=== PATIENT | male | born 1955 | race Caucasian/White ===

== ENCOUNTER → 2017-01-15 | Outpatient (CLI) | payer OTHER ==
[2017-01-15 16:22] LABS: ALBUMIN 3.6 GM/DL (3.2-5.2); ALBUMIN/GLOBULIN RATIO 1.03 (1.00-1.93); ALKALINE PHOSPHATASE 56 U/L (45-117); ALT/SGPT 23 U/L (12-78); ANION GAP 6 MEQ/L (8-16); AST/SGOT 22 U/L (15-37); BILIRUBIN,TOTAL 0.4 MG/DL (0.2-1.0); BLOOD UREA NITROGEN 15 MG/DL (7-18); CALCIUM LEVEL 8.7 MG/DL (8.8-10.2); CARBON DIOXIDE LEVEL 32 MEQ/L (21-32); CHLORIDE LEVEL 102 MEQ/L (98-107); CREATININE FOR GFR 1.04 MG/DL (0.70-1.30); GLOMERULAR FILTRATION RATE > 60.0 (>49); GLUCOSE, FASTING 107 MG/DL (80-110); POTASSIUM SERUM 4.5 MEQ/L (3.5-5.1); SODIUM LEVEL 140 MEQ/L (136-145); TOTAL PROTEIN 7.1 GM/DL (6.4-8.2)
== END ==
LOC: M LAB 15:02
PROVIDERS: ATTEND Family Medicine
DX: R63.4 Abnormal weight loss (principal)

== ENCOUNTER → 2017-02-01 | Outpatient (CLI) | payer OTHER ==
[~2017-02-01] MED LIST: E-Z-GAS II EFFERVESCENT PACKET (SODIUM BICARB./CITRIC ACID/SIMETHICONE) As Ordered ONE; E-Z-HD 98% w/w 340GM SUSP BTL As Ordered ONE; E-Z-PAQUE 96% w/w SUSP 176GM BTL As Ordered ONE
--- NOTE | 2017-02-01 19:27 | REP ---
Esophagram The procedure was performed under the direct supervision of Dr. Garces. The images were reviewed with Dr. Garces. 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 There is no change compared to a previous chest x-ray performed on 06/2002 the 1016. Liquid barium was administered in the erect position and prone oblique positions in order to perform a single contrast esophagram examination. The exam is compared to the previous study performed on 06/12/2012. The oral and pharyngeal stages of deglutition are unremarkable. 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 There is narrowing at the GE junction which is unchanged from the previous examination. This again measures approximately 3 mm in maximal diameter. In the mid and distal esophagus there is mucosal irregularity which may represent esophagitis. I would recommend endoscopy to rule out superficial carcinoma. Impression: 1. 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 2. There is narrowing at the GE junction which is unchanged from the previous examination. This again measures approximately 3 mm in maximal diameter. 3. In the mid and distal esophagus there is mucosal irregularity which may represent esophagitis. However, recommend endoscopy to rule out superficial carcinoma. 2 minutes of fluoro time was utilized for this procedure. Reviewed by YNES Hernandez 02/01/2017 02:46 PSigned by Jeff Garces MD 02/01/2017 07:18 P
== END ==
LOC: M RAD 08:36
PROVIDERS: ATTEND Physician Assistant
DX: K22.0 Achalasia of cardia (principal)

== ENCOUNTER → 2018-06-26 | Outpatient (CLI) | payer OTHER ==
--- NOTE | 2018-06-26 14:01 | PFTRPT ---
Height: 71.00 Inches Weight: 146.00 Lbs BSA: 1.84 Diagnosis: J44.9 DATE OF PROCEDURE: 06/26/2018 ORDERING PROVIDER: Mickey Hester DO Spirometry: Pre and post bronchodilator study of excellent technical quality. Forced vital capacity normal. FEV1 out of proportion. Obstructive index is, therefore, reduced. Flow Volume Loop: Expiratory limb of the flow volume loop consistent with flow rate limitation. No significant bronchodilator response is identified. Lung Volumes: Total lung capacity normal. Residual volume is in proportion. Diffusing Capacity: Diffusing capacity is normal. Hemoglobin: No hemoglobin available for correction. Airway Mechanics: Airway resistance and conductance are normal. IMPRESSION: Moderate obstructive ventilatory impairment without bronchodilator response. Please correlate clinically. MTDD
== END ==
LOC: M CARPUL 11:19
PROVIDERS: ATTEND Family Medicine
DX: J44.9 Chronic obstructive pulmonary disease, unspecified (principal)

== ENCOUNTER → 2020-08-02 | Outpatient (REF) | payer OTHER | LOC: M SFHCPLAZ 14:53 | PROVIDERS: ATTEND Family Medicine | DX: Z13.1 Encounter for screening for diabetes mellitus (principal); Z13.220 Encounter for screening for lipoid disorders ==

== ENCOUNTER → 2020-09-20 | Outpatient (CLI) | payer MEDICARE, MEDICAID ==
--- NOTE | 2020-09-20 13:34 | REP ---
INDICATION: RIGHT SHOULDER PAIN. COMPARISON: None. TECHNIQUE: Three views of the right shoulder were performed. FINDINGS: The acromioclavicular and glenohumeral relationships are within normal limits. There is no acute fracture or destructive osseous lesion. IMPRESSION: Within normal limits <Electronically signed by Robert Delvalle > 09/20/20 [id number]
== END ==
LOC: M RAD 13:12
PROVIDERS: ATTEND Physician Assistant Medical
DX: M25.511 Pain in right shoulder (principal)

== ENCOUNTER 2021-05-08 08:39 | Inpatient (IN) | payer MEDICAID, MEDICARE ==
[~2021-05-08] VITALS: Ht 180.3 cm; Wt 67.9 kg
[2021-05-08] MEDS ORDERED: ACETAMINOPHEN TAB 650MG DOSE (2X325MG) PO ONE (09:10)
[2021-05-08] MEDS ORDERED: NS 2,110 ML in IV 1 EA IV ONE (09:15)
[2021-05-08] MEDS ORDERED: cefTRIAXone SOD 2 GM in D5W MINI-BAG PLUS 50 ML IV ONE (09:15)
[2021-05-08 09:44] LABS: BASO % 0.1 % (0.0-1.0); HEMATOCRIT 40.9 % (42.0-52.0); HEMOGLOBIN 13.4 g/dl (13.5-17.5); LYMPH # 0.4 10^3/uL (1.5-5.0); LYMPH % 1.9 % (24.0-44.0); MEAN CORPUSCULAR HEMOGLOBIN 29.2 pg (27.0-33.0); MEAN CORPUSCULAR HGB CONC 32.8 g/dl (32.0-36.5); MEAN CORPUSCULAR VOLUME 89.1 fl (80.0-96.0); MONO # 1.1 10^3/uL (0.0-0.8); MONO % 5.4 % (2.0-8.0); NEUTROPHILS # 18.3 10^3/uL (1.5-8.5); NEUTROPHILS % 91.7 % (36.0-66.0); PLATELET COUNT, AUTOMATED 198 10^3/uL (150-450); RED BLOOD COUNT 4.59 10^6/uL (4.30-6.10)
--- NOTE | 2021-05-08 09:44 | REP ---
INDICATION: DYSPNEA/COUGH COMPARISON: 04/14/2016 TECHNIQUE: Portable AP view of the chest FINDINGS: Mediastinum and cardiac silhouette are normal. Lung hardy demonstrate emphysematous disease without focal consolidation or effusion. No pneumothorax. Skeletal structures intact. IMPRESSION: Chronic emphysematous changes. No acute process. <Electronically signed by Luther Gross > 05/08/21 [id number]
[2021-05-08 09:54] LABS: ALBUMIN 2.9 GM/DL (3.2-5.2); ALT/SGPT 83 U/L (12-78); BILIRUBIN,DIRECT 0.5 MG/DL (0.0-0.2); BLOOD UREA NITROGEN 23 MG/DL (7-18); CALCIUM LEVEL 8.6 MG/DL (8.8-10.2); CARBON DIOXIDE LEVEL 22 MEQ/L (21-32); CHLORIDE LEVEL 107 MEQ/L (98-107); GLUCOSE, FASTING 156 MG/DL (70-100); POTASSIUM SERUM 3.6 MEQ/L (3.5-5.1); SODIUM LEVEL 138 MEQ/L (136-145); TOTAL PROTEIN 6.4 GM/DL (6.4-8.2)
[2021-05-08] MEDS ORDERED: NS 1,000 ML IV ONE (11:50)
--- NOTE | 2021-05-08 12:17 | REP ---
INDICATION: SEPSIS COMPARISON: None TECHNIQUE: Axial noncontrast images from the thoracic inlet to the upper abdomen with coronal and sagittal reformations. This CT examination was performed using the following dose reduction techniques: Automated exposure control, adjustment of mA and/or kv according to the patient's size, and use of iterative reconstruction technique. FINDINGS: The lung hardy demonstrate advanced emphysematous changes with bronchiectasis and scattered scarring. There is an acute appearing "tree in bud" area of opacity in the right lower lobe suspicious for an acute infiltrate/early pneumonia. No effusion. No pneumothorax. Tracheobronchial tree is patent. The mediastinum demonstrates marked circumferential esophageal mural thickening with a significant amount of intraluminal debris/fluid to a distended distal esophagus followed by presumed stenosis at the gastroesophageal junction. Remainder of the mediastinum demonstrates atherosclerotic changes to the thoracic aorta and coronary arteries without aortic aneurysm or cardiomegaly. No pericardial effusion. Nonspecific mediastinal lymph nodes are identified and possibly reactive. Surrounding musculoskeletal structures demonstrate age-related degenerative changes without acute osseous abnormality. IMPRESSION: 1. Small to moderate area of "tree in bud" infiltrate to the right lower lobe suggesting early acute pneumonia. Follow-up to resolution is recommended. Small scattered nodules cannot be excluded as well. No effusion. 2. Circumferential esophageal wall thickening and distension with intraluminal debris and fluid extending to what appears to be an area of stenosis at the gastroesophageal junction. Correlation is required. <Electronically signed by Luther Gross > 05/08/21 [id number]
--- NOTE | 2021-05-08 12:21 | REP ---
INDICATION: SEPSIS R/O PYELONEPHRITIS COMPARISON: None TECHNIQUE: Axial noncontrast images from the lung bases to the pubic symphysis with coronal and sagittal reformations. This CT examination was performed using the following dose reduction techniques: Automated exposure control, adjustment of mA and/or kv according to the patient's size, and use of iterative reconstruction technique. FINDINGS: Liver, spleen, pancreas, gallbladder, bilateral adrenal glands and kidneys are essentially normal. The enteric system demonstrates luminal distension and mucosal thickening involving the visualized distal esophagus with intraluminal debris/fluid followed by suspected stenosis at the gastroesophageal junction and mucosal thickening to the proximal/mid stomach. Small and large bowel is grossly unremarkable although moderate fecal stasis and constipation requires correlation. Normal terminal ileum and appendix are identified in the right lower quadrant. Pelvis demonstrates normal bladder and enlarged prostate gland. No ascites. No free air. No obvious adenopathy although evaluation is limited by paucity of intraperitoneal fat and lack of intravenous contrast enhancement. No focal inflammatory stranding. Abdominal aorta without aneurysm. Musculoskeletal structures are intact and without acute osseous abnormality. IMPRESSION: 1. Changes involving the esophagus and stomach as described above warrant further investigation including GI consultation and possible endoscopy. 2. No definite acute abdominopelvic pathology otherwise appreciated. 3. Prostatomegaly. <Electronically signed by Luther Gross > 05/08/21 [id number]
[2021-05-08] MEDS ORDERED: HOME MED LIST COMPLETE! XX SCH (12:30)
[2021-05-08] MEDS: MIDODRINE 5 MG TAB PO SCH ×2 (13:00→15:48)
[2021-05-08] MEDS ORDERED: ENOXAPARIN 40MG/0.4ML SYRINGE (J1650 PER 10MG) SC ONE (13:00)
[2021-05-08] MEDS ORDERED: VANCOMYCIN HCL 1,000 MG, VIAL MATE ADAPTER 1 EACH in NS 250 ML IV ONE (13:00)
[2021-05-08 14:10] LABS: ACETAMINOPHEN LEVEL < 2.0 UG/ML (10.0-30.0)
[2021-05-08 14:32] LABS: HEPATITIS B SURFACE ANTIGEN NEGATIVE (NEGATIVE)
[2021-05-08 15:00] LABS: HEPATITIS B CORE ANTIBODY IGM NEGATIVE (NEGATIVE); HEPATITIS C VIRUS ABY INDEX 0.2 INDEX (<0.8)
[2021-05-08 17:23] VITALS: BP 104/64
--- NOTE | 2021-05-08 18:11 | HPEPDOC ---
[facility] Medical History & Physical Date of Admission May 08, 2021 Date of Service: May 08, 2021 History and Physical Chief complaint : Fever for 3 days 101-102 at home History of present illness: 65-year-old male with history of achalasia, depression, hypercholesterolemia, COPD, not oxygen or steroid-dependent, presents emergency room with 3-day history of fever of 101-102 at home. Patient felt well on , and was working tearing down plaster. The next day he had flulike symptoms, but no shortness of breath, loss of taste, loss of smell, chest pain, pressure, tightness, or chills. The flulike symptoms went away. Then, last night around 2:58 AM he noticed blood in his urine which cleared on its own. He took ibuprofen 2 to 3 tablets for his fevers. He admits to loss of appetite , without nausea , vomiting, abdominal pain, diarrhea, flank pain, headaches, shortness of breath, or cough. In the emergency room, patient was febrile 102.7, respiratory panel positive for rhinovirus and enterovirus, negative for coronavirus, hypotensive systolic pressure of 70/41, CT chest shows early right lower lobe pneumonia with tree-in-bud appearance, abnormal urinalysis, gross hematuria with hemoglobin of 13, CT abdomen showing normal bladder but enlarged prostate, and mucosal thickening and suspected stenosis at the gastroesophageal junction which he ascribes to his chronic history of achalasia. Patient was given 2 g of IV ceftriaxone for UTI. Due to concerns for possible aspiration patient was given IV Zosyn and to also cover for UTI, and doxycycline to cover for atypical pneumonia. Hospitalist was asked to admit the patient for sepsis secondary to urinary tract infection and early right upper lobe pneumonia with chronic history of achalasia. Past medical history: Achalasia depression hypercholesterolemia COPD Past surgical history: None Allergies: See chart Home medications: See chart Social history: Prior smoker quit 10 years ago previous Heath smoke a pack a day from the age of 30 to the age of 55, denies recreational drug use and alcohol abuse, works in construction, full code Family history: Patient does not know his father. Mother with Parkinson's hypertension and diabetes Review of system: See HPI for positive findings otherwise -10 point review of system Physical examination: Vital signs: See chart Generally: Disheveled thin frail appears older than his stated age no distress No pallor icterus jaundice or cyanosis HEENT: Face is symmetric tongue is midline dry mucous membranes no JVD thyromegaly cervical lymph adenopathy No carotid bruit, stridor Lungs: Clear to auscultation air entry is equal inspiratory expiratory ratio 1:2 no adventitious breath sounds Heart S1-S2 no S3 regular rate rhythm no murmurs gallops nondisplaced point of maximal impulse Abdomen: Soft nontender nondistended positive bowel sounds no CVA tenderness no hepatosplenomegaly refused Hamilton catheter Extremities: No cyanosis clubbing or pitting edema Skin: Warm dry well perfused pink in color Laboratory data, imaging study, microbiology: See chart Assessment and plan: 65-year-old male with history of achalasia, depression, hypercholesterolemia, COPD, not oxygen or steroid-dependent, presents emergency room with 3-day history of fever of 101-102 at home. Patient felt well on , and was working tearing down plaster. The next day he had flulike symptoms, but no shortness of breath, loss of taste, loss of smell, chest pain, pressure, tightness, or chills. The flulike symptoms went away. Then, last night around 2:58 AM he noticed blood in his urine which cleared on its own. He took ibuprofen 2 to 3 tablets for his fevers. He admits to loss of appetite , without nausea , vomiting, abdominal pain, diarrhea, flank pain, headaches, shortness of breath, or cough. In the emergency room, patient was febrile 102.7, respiratory panel positive for rhinovirus and enterovirus, negative for coronavirus, hypotensive systolic pressure of 70/41, CT chest shows early right lower lobe pneumonia with tree-in-bud appearance, abnormal urinalysis, gross hematuria with hemoglobin of 13, CT abdomen showing normal bladder but enlarged prostate, and mucosal thickening and suspected stenosis at the gastroesophageal junction which he ascribes to his chronic history of achalasia. Patient was given 2 g of IV ceftriaxone for UTI. Due to concerns for possible aspiration patient was given IV Zosyn and to also cover for UTI, and doxycycline to cover for atypical pneumonia. Sepsis Secondary to urinary tract infection early right upper lobe pneumonia and enterovirus and rhinoviral infection Patient was given intravenous fluids due to hypotension started on ceftriaxone in the ER but continued on Zosyn and doxycycline Urinary tract infection with gross hematuria No pyelonephritis noted on CT abdomen and pelvis and without thickening of the bladder wall Patient refused Hamilton catheter and continuous bladder irrigation He was given IV ceftriaxone in the ER, continued on Zosyn in order to cover pneumonia from possible aspiration as well Await urine culture and de-escalate antibiotics Recheck hemoglobin hematocrit to assess for worsening blood loss Gross hematuria/acute blood loss Patient is refusing Hamilton catheter with continuous bladder irrigation to see if the hematuria resolves Avoid anticoagulants. Hemoglobin stable patient is currently improved with IV fluid hydration is not hypotensive anymore. Monitor I's and O's. If patient has less than 30 mils of urine per hour, check a bladder scan to make sure the blood clots are not preventing urine from coming out. Transfuse his hemoglobin is less than 7 with ongoing blood loss or if sym ptomatic Enteroviral human rhino viral infection Contact precautions. Supportive care Early right lower lobe community-acquired pneumonia Due to risk of aspiration with history of achalasia and dysphagia in the past patient has been covered for anaerobics bacteria with Zosyn as well as doxycycl ine for atypical infection He refuses further work-up for his achalasia therefore upper GI series and GI consultation was not done Covid negative. Dry cough unable to obtain sputum culture. Check urine strep to coccal antigen and urine Legionella. Chronic history of achalasia Refused surgery in [place] 5 years ago Patient had seen Dr. Osuna who recommended surgery but patient refused He is at risk for dysphagia causing aspiration now with a right lower lobe pneumonia but refusing upper GI series GI consult and surgery which was recommended by GI from his previous office visit. Prior history of smoking, with [id number] history of smoking, COPD, compensated Patient quit smoking 10 years ago He has no wheezing on exam As needed bronchodilators Hypercholesterolemia Check lipid profile in the morning Depression No acute suicidal or homicidal ideation or plan. Disposition: Patient wants to leave the hospital tomorrow. Defer to morning physician to see if patient can be discharged home if clinically stable. Patient has mental capacity to sign out AGAINST MEDICAL ADVICE. Vital Signs Vital Signs Date Time Temp Pulse Resp B/P (MAP) Pulse Ox O2 Delivery O2 Flow Rate FiO2 05/08/21 17:23 99.5 91 18 104/64 (77) 05/08/21 17:00 97 Room Air Laboratory Data Labs 24H Laboratory Tests 2 05/08/21 09:12: Immature Granulocyte % (Auto) 0.9, Neutrophils (%) (Auto) 91.7H, Lymphocytes (%) (Auto) 1.9L, Monocytes (%) (Auto) 5.4, Eosinophils (%) (Auto) 0.0, Basophils (%) (Auto) 0.1, Neutrophils # (Auto) 18.3H, Lymphocytes # (Auto) 0.4L, Monocytes # (Auto) 1.1H, Eosinophils # (Auto) 0.0, Basophils # (Auto) 0.0, Nucleated Red Blood Cells % (auto) 0.0, Anion Gap 9, Glomerular Filtration Rate 59.0, Lactic Acid Level 1.4, Calcium Level 8.6L, Total Bilirubin 1.0, Direct Bilirubin 0.5H, Aspartate Amino Transf (AST/SGOT) 79H, Alanine Aminotransferase (ALT/SGPT) 83H, Alkaline Phosphatase 95, Total Protein 6.4, Albumin 2.9L, Albumin/Globulin Ratio 0.8, Thyroid Stimulating Hormone (TSH) 1.420, Acetaminophen Level < 2.0L, Hepatitis A IgM Antibody NEGATIVE, Hepatitis B Surface Antigen NEGATIVE, Hepatitis B Core IgM Antibody NEGATIVE, Hepatitis C Antibody Index 0.2 05/08/21 09:20: Urine Color YELLOW, Urine Appearance CLOUDYH, Urine pH 5.0, Urine Specific [place] 1.014, Urine Protein 2+H, Urine Glucose (UA) NEGATIVE, Urine Ketones NEGATIVE, Urine Blood 3+H, Urine Nitrite POSITIVEH, Urine Bilirubin NEGATIVE, Urine Urobilinogen 0.2, Urine Leukocyte Esterase 3+H, Urine WBC (Auto) TNTCH, Urine RBC (Auto) 56H, Urine Hyaline Casts (Auto) 0, Urine Bacteria (Auto) 2+H, Urine Squamous Epithelial Cells 1, Urine Transitional Epithelial Cells 1, Urine Amorphous Sediment SMALLH, Urine Mucus (Auto) SMALL, Urine Sperm (Auto) CBC/BMP Laboratory Tests 05/08/21 09:12 Microbiology Microbiology 05/08/21 Urine Culture, Received Pending 05/08/21 Respiratory Virus Panel (PCR) ([facility]IRAN) - Final, Complete Human Rhinovirus/Enterovirus 05/08/21 Blood Culture, Received Pending 05/08/21 Blood Culture, Received Pending Home Medications No Active Prescriptions or Reported Meds Allergies Coded Allergies: No Known Allergies (Unverified , 05/08/21) A-FIB/CHADSVASC A-FIB History Current/History of A-Fib/PAF?: No Current PO Anticoag Therapy: No Age/Risk Factor Scoring CHADSVASC: CHADSVASC Response (Comments) Value Age Risk Factor Age 65-74 years old 1 Gender Risk Factor Male 0 Hx of CHF No 0 Hx of HTN Yes 1 Hx of Stroke/TIA/or VTE No 0 Hx of Vascular Disease No 0 Total 2 Treatment Treatment ordered: NONE NAT SEVERINO MD May 08, 2021 18:11
[2021-05-08] MEDS: PIPERACILLIN/TAZOBACTAM SOD 3.375 GM in D5W MINI-BAG PLUS 50 ML IV SCH (18:33)
[2021-05-08 20:00] VITALS: BP 91/49
[2021-05-08] MEDS: DOXYCYCLINE HYCLATE 100 MG in D5W MINI-BAG PLUS 100 ML IV SCH (20:50)
[2021-05-09] MEDS: PIPERACILLIN/TAZOBACTAM SOD 3.375 GM in D5W MINI-BAG PLUS 50 ML IV SCH ×5 (00:02→23:13)
--- NOTE | 2021-05-09 00:45 | ECGEPIP ---
[facility] - ED Test Date: 2021-05-08 Pat Name: BELTRAN GUSTAFSON Department: Room: - Gender: Male Refrigeration Installer: steven : 1955 Requested By: YANIRA Wilson Order Number: [id number] Reading MD: Mike Strickland Measurements Intervals [place] Rate: 90 P: 83 DC: 122 QRS: 54 QRSD: 80 T: 71 QT: 324 QTc: 396 Interpretive Statements Normal sinus rhythm Possible right atrial enlargement INCOMPLETE RIGHT BUNDLE BRANCH BLOCK NO PRIORS FOR COMPARISON Electronically Signed on 05-09-2021 0:45:13 EST by Mike Strickland
[2021-05-09 06:00] VITALS: BP 94/49
[2021-05-09 06:24] LABS: BASO % 0.2 % (0.0-1.0); EOS # 0.2 10^3/uL (0.0-0.5); HEMATOCRIT 36.5 % (42.0-52.0); HEMOGLOBIN 11.9 g/dl (13.5-17.5); LYMPH # 1.3 10^3/uL (1.5-5.0); LYMPH % 7.9 % (24.0-44.0); MEAN CORPUSCULAR HEMOGLOBIN 29.6 pg (27.0-33.0); MEAN CORPUSCULAR HGB CONC 32.6 g/dl (32.0-36.5); MEAN CORPUSCULAR VOLUME 90.8 fl (80.0-96.0); MONO # 1.8 10^3/uL (0.0-0.8); MONO % 10.7 % (2.0-8.0); NEUTROPHILS # 13.4 10^3/uL (1.5-8.5); NEUTROPHILS % 79.5 % (36.0-66.0); PLATELET COUNT, AUTOMATED 181 10^3/uL (150-450); RED BLOOD COUNT 4.02 10^6/uL (4.30-6.10); WHITE BLOOD COUNT 16.8 10^3/uL (4.0-10.0)
[2021-05-09 06:47] LABS: ALBUMIN 2.4 GM/DL (3.2-5.2); ALT/SGPT 73 U/L (12-78); BILIRUBIN,TOTAL 0.4 MG/DL (0.2-1.0); BLOOD UREA NITROGEN 24 MG/DL (7-18); CALCIUM LEVEL 7.7 MG/DL (8.8-10.2); CARBON DIOXIDE LEVEL 24 MEQ/L (21-32); CHLORIDE LEVEL 113 MEQ/L (98-107); CREATININE FOR GFR 1.06 MG/DL (0.70-1.30); GLOMERULAR FILTRATION RATE > 60.0 (>49); GLUCOSE, FASTING 90 MG/DL (70-100); LIPASE 317 U/L (73-393); MAGNESIUM LEVEL 1.9 MG/DL (1.8-2.4); POTASSIUM SERUM 3.7 MEQ/L (3.5-5.1); SODIUM LEVEL 143 MEQ/L (136-145); TOTAL PROTEIN 5.6 GM/DL (6.4-8.2)
[2021-05-09] MEDS ORDERED: E-Z-PAQUE 96% w/w SUSP 176GM BTL As Ordered ONE (08:45)
[2021-05-09] MEDS ORDERED: E-Z-GAS II EFFERVESCENT PACKET (SODIUM BICARB./CITRIC ACID/SIMETHICONE) As Ordered ONE (08:45)
[2021-05-09] MEDS ORDERED: E-Z-HD 98% w/w 340GM SUSP BTL As Ordered ONE (08:46)
[2021-05-09] MEDS ORDERED: ENOXAPARIN 40MG/0.4ML SYRINGE (J1650 PER 10MG) SC SCH (09:00)
[2021-05-09 09:06] VITALS: BP 99/60
[2021-05-09] MEDS: DOXYCYCLINE HYCLATE 100 MG in D5W MINI-BAG PLUS 100 ML IV SCH ×2 (09:09→21:41)
[2021-05-09] MEDS: MIDODRINE 5 MG TAB PO SCH ×3 (09:09→17:22)
[2021-05-09] MEDS: LACTOBACILLUS ACIDOPHILUS CAP (BACID) PO SCH ×2 (09:09→21:42)
[2021-05-09] MEDS ORDERED: cefTRIAXone SOD 1 GM in D5W MINI-BAG PLUS 50 ML IV SCH (10:00)
[2021-05-09] MEDS ORDERED: IPRATROPIUM 0.5MG/ALBUTEROL 2.5MG INH SOL UD 3ML (DUONEB) NEB PRN (10:10)
--- NOTE | 2021-05-09 10:17 | IPNPDOC ---
Text Note Date of Service The patient was seen on 05/09/21. NOTE Subjective: Patient is a 65-year-old male with a PMHx of Achalasia, COPD, DLP, Depression, who presented to the ER on 05/08 with a three-day history of fevers. Patient had reported flulike symptoms but he denied any shortness of breath or chest pain. Patient later had developed hematuria and came to the ER for further evaluation. Respiratory panel completed for was positive for rhinovirus and enterovirus, and urinalysis was consistent with a UTI. Patient was admitted to the hospitalist service for further evaluation and treatment Patient was seen and examined at the bedside. Currently patient denies any nausea, vomiting, chest pain, shortness breath, palpitations. Patient denies any difficulty swallowing. He reports that he has a history of achalasia for 25 years and has been advised that he should pursue surgical intervention. However, he has refused at this point because he remains relatively asymptomatic. Patient denies any urinary discomfort and denies any blood in his urine since yesterday. Objective: Vitals (See below) General: Lying in bed, no acute distress, comfortable, awake / alert, oriented x3 HEENT: NC, AT CVS: RRR, +S1S2 Lungs: Fair air entry b/l, -w/r/r Abdomen: Soft, ND, NT Extremities: - Edema, - Calf tenderness Imaging: CXR 05/08: Chronic emphysematous changes. No acute process. CT abdomen / pelvis 05/08: 1. Changes involving the esophagus and stomach as described above warrant further investigation including GI consultation and possible endoscopy. 2. No definite acute abdominopelvic pathology otherwise appreciated. 3. Prostatomegaly. CT chest 05/08: 1. Small to moderate area of "tree in bud" infiltrate to the right lower lobe suggesting early acute pneumonia. Follow-up to resolution is recommended. Small scattered nodules cannot be excluded as well. No effusion. 2. Circumferential esophageal wall thickening and distension with intraluminal debris and fluid extending to what appears to be an area of stenosis at the gastroesophageal junction. Correlation is required. Assessment and plan: Hypotension - Currently, patient's blood pressure remains on the lower limits of normal - Patient has been ambulating without any difficulty - Lactic acid has been negative - Has been started on Midodrine on 05/08 (admission) - Will have PT / OT evaluate UTI with gross hematuria - UA positive for UTI - Urine culture 05/08: Pending - c/w Antibiotics (See below) s/p Gross hematuria/acute blood loss - possibly 2/2 UTI - Patient has reported resolution of his hematuria - Hemoglobin remains stable - Imaging noted above - Patient has refused Hamilton catheter placement - Will have outpatient follow-up with urology on discharge RLL pneumonia - possibly 2/2 aspiration PNA - Patient denies seizures of breath had reported a slight cough yesterday which is resolved today - Remains afebrile - Leukocytosis improving - Respiratory panel 05/08: Human rhinovirus/enterovirus - Blood cultures 05/08: No growth at 24 hours - c/w Zosyn and Doxycycline (Antibiotic day #2); will consider de-escalating antibiotic therapy to Moxifloxacin within the next 24 hours Enteroviral human rhino viral infection - c/w Supportive care - Will add Mucinex / Acapella / Incentive spirometry Chronic history of achalasia - Patient currently does not experience any nausea or vomiting - He has described episodes of regurgitation - Patient was advised to proceed with surgery 5 years ago. However, had refused - Speech therapy has been called on consultation; recommended Esophagram - Patient does not want to proceed with EGD at this time; however advised that he should proceed with one to help determine if there is any change; including evaluation for malignancy; patient has verbalized understanding Prior Smoker / Possible COPD - No evidence of exacerbation - Quit smoking 10 years ago; smoker of 25 years - Will add inhaled therapy PRN DLP - Will check cardiac risk profile - Currently not on any medication Depression - Patient denies any suicidal or homicidal ideation - Currently not on any medications DVT prophylaxis - c/w TEDs/Seqeuntials (re: Hematuria) Disposition: - Pending clinical improvement - Anticipate discharge within 24-48 hours VS,Fishbone, I+O VS, Fishbone, I+O Laboratory Tests 05/09/21 05:42 Vital Signs Date Time Temp Pulse Resp B/P (MAP) Pulse Ox O2 Delivery O2 Flow Rate FiO2 05/09/21 09:06 99/60 (73) 05/09/21 06:00 98.0 60 19 98 Room Air I&O- Last 24 Hours up to 6 AM 05/09/21 05:59 Intake Total 3430 ml Output Total 250 ml Balance 3180 ml MARSHA GILMORE MD May 09, 2021 10:17
[2021-05-09 10:41] LABS: CHOLESTEROL LEVEL 84 MG/DL (<200); HDL CHOLESTEROL 48 MG/DL (>40); LDL CHOLESTEROL 27 MG/DL (<100); NON-HDL-C 36 MG/DL; TRIGLYCERIDES LEVEL 46 MG/DL (<150)
[2021-05-09] MEDS: guaiFENesin ER 600 MG TAB PO SCH ×2 (11:50→21:42)
[2021-05-09 14:00] VITALS: BP 100/62
--- NOTE | 2021-05-09 16:42 | REP ---
INDICATION: Achalasia. COMPARISON: None. TECHNIQUE: The procedure was performed under the direct supervision of Dr. Garces. The images were reviewed with Dr. Garces. Liquid barium was administered in the erect and prone oblique positions in order to perform a single contrast esophagram and upper GI examination.. 1 minute of fluoro time was utilized for this procedure. FINDINGS: There is a possible polypoid mass in the left hypopharynx. This is best seen in the AP projection. There is achalasia which is essentially unchanged from the previous exam dated 02/01/2017. However there is esophagitis on today's exam. There is residual ingested material in the esophagus which limits evaluation. Contrast does go through the GE junction and into the stomach although slowly. The stomach is not well distended due to the paucity of barium. However, there is possible diffuse fold thickening in the fundus. A duodenum there are thickened folds which may represent duodenitis. There is no leo ulcer identified. IMPRESSION: 1. There is a possible polypoid mass in the left hypopharynx. 2. There is achalasia which is essentially unchanged from the previous exam dated 02/01/2017. However, there is esophagitis on today's exam. There is residual ingested material in the esophagus which limits evaluation. 3. The stomach is not well distended due to the paucity of barium, however, there is possible diffuse fold thickening in the fundus. 4. In the duodenum there are thickened folds which may represent duodenitis. <Electronically signed by Ramsey Rizvi > 05/09/21 1530 <Electronically signed by Jeff Garces > 05/09/21 [id number]
[2021-05-09] MEDS: ACETAMINOPHEN TAB 650MG DOSE (2X325MG) PO PRN (17:22)
[2021-05-09] MEDS: NS 1,000 ML IV SCH (17:22)
[2021-05-09 22:00] VITALS: BP 103/64
[2021-05-10] MEDS: NS 1,000 ML IV SCH ×2 (02:55→12:55)
[2021-05-10 04:47] LABS: BASO % 0.2 % (0.0-1.0); EOS # 0.4 10^3/uL (0.0-0.5); EOS % 2.9 % (0.0-3.0); HEMATOCRIT 37.1 % (42.0-52.0); HEMOGLOBIN 11.9 g/dl (13.5-17.5); LYMPH # 0.9 10^3/uL (1.5-5.0); MEAN CORPUSCULAR HEMOGLOBIN 29.2 pg (27.0-33.0); MEAN CORPUSCULAR HGB CONC 32.1 g/dl (32.0-36.5); MEAN CORPUSCULAR VOLUME 90.9 fl (80.0-96.0); MONO # 1.4 10^3/uL (0.0-0.8); MONO % 11.3 % (2.0-8.0); NEUTROPHILS # 9.4 10^3/uL (1.5-8.5); NEUTROPHILS % 78.1 % (36.0-66.0); PLATELET COUNT, AUTOMATED 184 10^3/uL (150-450); RED BLOOD COUNT 4.08 10^6/uL (4.30-6.10); WHITE BLOOD COUNT 12.1 10^3/uL (4.0-10.0)
[2021-05-10 05:12] LABS: ALBUMIN 2.5 GM/DL (3.2-5.2); ALT/SGPT 60 U/L (12-78); BILIRUBIN,TOTAL 0.4 MG/DL (0.2-1.0); BLOOD UREA NITROGEN 17 MG/DL (7-18); CALCIUM LEVEL 7.6 MG/DL (8.8-10.2); CARBON DIOXIDE LEVEL 25 MEQ/L (21-32); CHLORIDE LEVEL 109 MEQ/L (98-107); CREATININE FOR GFR 0.88 MG/DL (0.70-1.30); GLOMERULAR FILTRATION RATE > 60.0 (>49); GLUCOSE, FASTING 89 MG/DL (70-100); LIPASE 73 U/L (73-393); POTASSIUM SERUM 3.7 MEQ/L (3.5-5.1); SODIUM LEVEL 141 MEQ/L (136-145); TOTAL PROTEIN 5.5 GM/DL (6.4-8.2)
[2021-05-10] MEDS: PIPERACILLIN/TAZOBACTAM SOD 3.375 GM in D5W MINI-BAG PLUS 50 ML IV SCH (05:50)
[2021-05-10 06:00] VITALS: BP 106/65
[2021-05-10] MEDS ORDERED: LevoFLOXacin 750 MG TABLET PO SCH (06:00)
[2021-05-10] MEDS ORDERED: RISATAB3 PO (09:31)
[2021-05-10] MEDS ORDERED: LEVO500T3 PO (09:31)
[2021-05-10] MEDS ORDERED: MUCI600T31 PO (09:31)
[2021-05-10] MEDS: LACTOBACILLUS ACIDOPHILUS CAP (BACID) PO SCH (10:39)
[2021-05-10] MEDS: guaiFENesin ER 600 MG TAB PO SCH (10:39)
[2021-05-10] MEDS: ACETAMINOPHEN TAB 650MG DOSE (2X325MG) PO PRN (10:46)
[2021-05-10] MEDS ORDERED: FLAG375C PO (13:18)
[2021-05-10] MEDS ORDERED: OMEP40CA4 PO (13:28)
[2021-05-10] MEDS ORDERED: metroNIDAZOLE (FLAGYL) 500MG TABLET PO ONE (13:35)
--- NOTE | 2021-05-10 13:37 | DS.PDOC ---
Discharge Summary General Date of Admission May 08, 2021 at 11:44 Date of Discharge 05/10/2021 Discharge Summary PROCEDURES PERFORMED DURING STAY: [None]. ADMITTING DIAGNOSES / DISCHARGE DIAGNOSES: s/p Hypotension - likely 2/2 dehydration / infection UTI with gross hematuria s/p Gross hematuria/acute blood loss - possibly 2/2 UTI RLL pneumonia - possibly 2/2 aspiration PNA Enteroviral human rhino viral infection Chronic history of achalasia Possible polypoid mass in the left hypopharynx Prior Smoker / Possible COPD DLP Depression DVT prophylaxis COMPLICATIONS/CHIEF COMPLAINT: Fevers HISTORY OF PRESENT ILLNESS: Patient is a 65-year-old male with a PMHx of Achalasia, COPD, DLP, Depression, who presented to the ER on 05/08 with a three-day history of fevers. Patient had reported flulike symptoms but he denied any shortness of breath or chest pain. Patient later had developed hematuria and came to the ER for further evaluation. Respiratory panel completed for was positive for rhinovirus and enterovirus, and urinalysis was consistent with a UTI. Patient was admitted to the hospitalist service for further evaluation and treatment Patient was seen and examined at the bedside. Patient denies any chest pain, SOB, palpitations, nausea, vomiting, abdominal pain, constipation or diarrhea. Patient denies any significant cough. HOSPITAL COURSE: s/p Hypotension - likely 2/2 dehydration / infection - Currently, patient's blood pressure remains on the lower limits of normal - a nd midodrine has been discontinued - Patient has been ambulating without any difficulty - Lactic acid remains negative - Has improved with IV fluid hydration - s/p Midodrine - Patient has had a HSE and has been cleared for discharge home UTI with gross hematuria - UA positive for UTI - Urine culture 05/08: E. Coli - c/w Antibiotics (See below) s/p Gross hematuria/acute blood loss - possibly 2/2 UTI - Patient has reported resolution of his hematuria - Hemoglobin remains stable - Imaging noted below - Patient has refused Hamilton catheter placement - Will have outpatient follow-up with urology on discharge RLL pneumonia - possibly 2/2 aspiration PNA - Patient reports that his breathing is doing relatively fine. He denies any significant productive cough - Patient continues to remain afebrile - Leukocytosis continues to downtrend - Respiratory panel 05/08: Human rhinovirus/enterovirus - Blood cultures 05/08: No growth at 48 hours - Will start Levofloxacin and Flagyl; Will DC Zosyn and Doxycycline (Antibiotic day #3); will consider de-escalating antibiotic therapy to Moxifloxacin within the next 24 hours Enteroviral human rhino viral infection - c/w Supportive care - c/w Mucinex / Acapella / Incentive spirometry Chronic history of achalasia - Patient denies any nausea or vomiting. Has reported a few episodes of regurgitation in the past - Patient has been tolerating his current oral diet - Patient was advised to proceed with surgery 5 years ago. However, had refused - Imaging noted below - Speech therapy has been called on consultation; appreciate their recommendations - Will start Omeprazole - Patient does not want to proceed with EGD at this time; he has been advised that he should get one to help determine if there is any change from prior / and to rule out possible malignancy; patient has verbalized understanding - Patient notes that he has a GI provider in [place] that he will follow up with as an outpatient Possible polypoid mass in the left hypopharynx - I have advised patient of the findings of esophagram suggesting possible polypoid mass; possibility of malignancy - he has verbalized understanding - I have advised him that this would require further evaluation via laryngoscopy / biopsy - Patient does not want to have this evaluated as an inpatient; he wants to go home - Will have outpatient follow up with ENT on discharge Prior Smoker / Possible COPD - No evidence of exacerbation - Quit smoking 10 years ago; smoker of 25 years - c/w inhaled therapy as ordered DLP - Cardiac risk profile without any significant elevation of LDL - Currently not on any medication Depression - Patient denies any suicidal or homicidal ideation - Currently not on any medications DVT prophylaxis - c/w TEDs/Sequentials (re: Hematuria) DISCHARGE MEDICATIONS: Please see below. ALLERGIES: Please see below. PHYSICAL EXAMINATION ON DISCHARGE: Vitals (See below) General: Lying in bed, appears comfortable, awake / alert, oriented x3 HEENT: NC, AT CVS: RRR, +S1S2 Lungs: Fair air entry b/l, no wheezing, rales or rhonchi Abdomen: Soft, nondistended and nontender Extremities: No evidence of edema, - Calf tenderness LABORATORY DATA: Please see below. IMAGING: CXR 05/08: Chronic emphysematous changes. No acute process. CT abdomen / pelvis 05/08: 1. Changes involving the esophagus and stomach as described above warrant further investigation including GI consultation and possible endoscopy. 2. No definite acute abdominopelvic pathology otherwise appreciated. 3. Prostatomegaly. CT chest 05/08: 1. Small to moderate area of "tree in bud" infiltrate to the right lower lobe suggesting early acute pneumonia. Follow-up to resolution is recommended. Small scattered nodules cannot be excluded as well. No effusion. 2. Circumferential esophageal wall thickening and distension with intraluminal debris and fluid extending to what appears to be an area of stenosis at the gastroesophageal junction. Correlation is required. Esophagram 05/09: 1. There is a possible polypoid mass in the left hypopharynx. 2. There is achalasia which is essentially unchanged from the previous exam dated 02/01/2017. However, there is esophagitis on today's exam. There is residual ingested material in the esophagus which limits evaluation. 3. The stomach is not well distended due to the paucity of barium, however, there is possible diffuse fold thickening in the fundus. 4. In the duodenum there are thickened folds which may represent duodenitis. ACTIVITY: [As tolerated]. DISCHARGE PLAN: Follow-up with primary care provider, urology, ENT and GI within the next 7 days Remain compliant with treatment plan and medications Return to the ER if you experience any problems DISPOSITION: Home with services DISCHARGE CONDITION: [Stable]. TIME SPENT ON DISCHARGE: 35 minutes. Vital Signs/I&Os Vital Signs Date Time Temp Pulse Resp B/P (MAP) Pulse Ox O2 Delivery O2 Flow Rate FiO2 05/10/21 06:00 98.8 74 16 106/65 (79) 94 Room Air I&O- Last 24 Hours up to 6 AM 05/10/21 06:00 Intake Total 1850 ml Output Total 0 ml Balance 1850 ml Laboratory Data Labs 24H Laboratory Tests 2 05/09/21 14:20: Cortisol Baseline 23.4H 05/10/21 04:30: Immature Granulocyte % (Auto) 0.5, Neutrophils (%) (Auto) 78.1H, Lymphocytes (%) (Auto) 7.0L, Monocytes (%) (Auto) 11.3H, Eosinophils (%) (Auto) 2.9, Basophils (%) (Auto) 0.2, Neutrophils # (Auto) 9.4H, Lymphocytes # (Auto) 0.9L, Monocytes # (Auto) 1.4H, Eosinophils # (Auto) 0.4, Basophils # (Auto) 0.0, Nucleated Red Blood Cells % (auto) 0.0, Anion Gap 7L, Glomerular Filtration Rate > 60.0, Lactic Acid Level 0.8, Calcium Level 7.6L, Magnesium Level 2.0, Total Bilirubin 0.4, Aspartate Amino Transf (AST/SGOT) 58H, Alanine Aminotransferase (ALT/SGPT) 60, Alkaline Phosphatase 61, Total Protein 5.5L, Albumin 2.5L, Albumin/Globulin Ratio 0.8, Lipase 73 CBC/BMP Laboratory Tests 05/10/21 04:30 Microbiology Microbiology 05/08/21 Urine Culture - Final, Complete Escherichia Coli 05/08/21 Respiratory Virus Panel (PCR) ([facility]) - Final, Complete Human Rhinovirus/Enterovirus 05/08/21 Blood Culture - Preliminary, Resulted No Growth after 48 hours. All Specime... 05/08/21 Blood Culture - Preliminary, Resulted No Growth after 48 hours. All Specime... Discharge Medications Scheduled Guaifenesin (Mucinex) 600 Mg Tab.er.12h, 600 MG PO BID L.acidoph/L.bulg/B.bif/S.therm (Celena-Bid Caplet) 1 Each Tablet, 2 EA PO BID Levofloxacin (Levofloxacin) 500 Mg Tablet, 500 MG PO DAILY@06 Metronidazole (Flagyl) 375 Mg Capsule, 1 CAP PO TID Allergies Coded Allergies: No Known Allergies (Unverified , 05/08/21) MARSHA GILMORE MD May 10, 2021 13:37
[2021-05-10 13:44] VITALS: BP 118/70
[2021-05-10 14:00] VITALS: BP 109/65
== END 2021-05-10 15:24 | disposition home or self-care (01) | DRG 178 ==
LOC: M ED 08:39 → M ED INP 11:44 → ENRESERV 16:27 → M MSPAV 17:05
PROVIDERS: ADMIT General Practice; ATTEND Internal Medicine
DX: J69.0 Pneumonitis due to inhalation of food and vomit (principal); N39.0 Urinary tract infection, site not specified; D62 Acute posthemorrhagic anemia; B97.10 Unspecified enterovirus as the cause of diseases classified elsewhere; F32.A Depression, unspecified; R31.0 Gross hematuria; Z87.891 Personal history of nicotine dependence; J44.9 Chronic obstructive pulmonary disease, unspecified; E86.0 Dehydration; I95.9 Hypotension, unspecified; J39.2 Other diseases of pharynx; B96.29 Other Escherichia coli [E. coli] as the cause of diseases classified elsewhere; E78.00 Pure hypercholesterolemia, unspecified

== ENCOUNTER → 2021-08-14 | Outpatient (REF) | payer MEDICARE ==
[~2021-08-14] MED LIST changes: -E-Z-GAS II EFFERVESCENT PACKET (SODIUM BICARB./CITRIC ACID/SIMETHICONE) As Ordered ONE; -E-Z-HD 98% w/w 340GM SUSP BTL As Ordered ONE; -E-Z-PAQUE 96% w/w SUSP 176GM BTL As Ordered ONE; +FLAG375C PO; +LEVO500T4 PO; +MUCI600T31 PO; +OMEP40CA4 PO; +RISATAB3 PO
== END ==
LOC: M SFHCPLAZ 10:13
PROVIDERS: ATTEND Family Medicine
DX: Z12.5 Encounter for screening for malignant neoplasm of prostate (principal)

== ENCOUNTER → 2021-08-28 | Outpatient (CLI) | payer MEDICARE, OTHER | LOC: M WHC 07:23 | PROVIDERS: ATTEND Family Medicine | DX: Z13.6 Encounter for screening for cardiovascular disorders (principal) ==

== ENCOUNTER → 2022-08-17 | Outpatient (CLI) | payer MEDICARE ==
[~2022-08-17] MED LIST changes: +LEVO1TAB39 PO; -LEVO500T4 PO
[2022-08-17 10:12] LABS: BASO % 0.3 % (0.0-1.0); EOS # 0.4 10^3/uL (0.0-0.5); EOS % 3.8 % (0.0-3.0); HEMATOCRIT 48.2 % (42.0-52.0); HEMOGLOBIN 15.2 g/dl (13.5-17.5); LYMPH # 1.5 10^3/uL (1.5-5.0); LYMPH % 15.3 % (24.0-44.0); MEAN CORPUSCULAR HEMOGLOBIN 28.8 pg (27.0-33.0); MEAN CORPUSCULAR HGB CONC 31.5 g/dl (32.0-36.5); MEAN CORPUSCULAR VOLUME 91.3 fl (80.0-96.0); MONO # 1.1 10^3/uL (0.0-0.8); MONO % 11.6 % (2.0-8.0); NEUTROPHILS # 6.7 10^3/uL (1.5-8.5); NEUTROPHILS % 68.8 % (36.0-66.0); PLATELET COUNT, AUTOMATED 260 10^3/uL (150-450); RED BLOOD COUNT 5.28 10^6/uL (4.30-6.10); WHITE BLOOD COUNT 9.7 10^3/uL (4.0-10.0)
[2022-08-17 10:36] LABS: LDH LACTATE DEHYDROGENASE 220 U/L (120-246)
[2022-08-17 10:38] LABS: ALBUMIN 3.6 G/DL (3.2-5.2); ALKALINE PHOSPHATASE 53 U/L (46-116); ALT/SGPT 29 U/L (7.0-40); AST/SGOT 25 U/L (<34); BILIRUBIN,TOTAL 0.4 MG/DL (0.3-1.2); BLOOD UREA NITROGEN 19 MG/DL (9-23); CALCIUM LEVEL 9.4 MG/DL (8.3-10.6); CARBON DIOXIDE LEVEL 34 MMOL/L (20-31); CHLORIDE LEVEL 104 MMOL/L (98-107); CHOLESTEROL LEVEL 142 MG/DL (<200); CHOLESTEROL RISK RATIO 2.39 (<5); CREATININE FOR GFR 0.84 MG/DL (0.70-1.30); GLOMERULAR FILTRATION RATE > 60.0 (>49); GLUCOSE, FASTING 72 MG/DL (74-106); HDL CHOLESTEROL 59.3 MG/DL (>40); LDL CHOLESTEROL 69.9 MG/DL (<100); NON-HDL-C 82.7 MG/DL; POTASSIUM SERUM 4.9 MMOL/L (3.5-5.1); SODIUM LEVEL 139 MMOL/L (136-145); TOTAL PROTEIN 6.7 G/DL (5.7-8.2); TRIGLYCERIDES LEVEL 64 MG/DL (<150)
== END ==
LOC: M LAB 09:44
PROVIDERS: ATTEND Student in an Organized Health Care Education/Training Program
DX: Z12.5 Encounter for screening for malignant neoplasm of prostate (principal); E78.5 Hyperlipidemia, unspecified; K92.1 Melena
CPT/HCPCS: 36415; 80053; 80061; 83615; 85025; G0103

== ENCOUNTER → 2023-12-16 | Outpatient (CLI) | payer MEDICARE ==
[2023-12-16 18:27] LABS: BLOOD UREA NITROGEN 25 MG/DL (9-23); CREATININE FOR GFR 0.81 MG/DL (0.70-1.30); GLOMERULAR FILTRATION RATE > 60.0 (>49)
== END ==
LOC: M WUC 11:07
PROVIDERS: ATTEND Otolaryngology
DX: R22.1 Localized swelling, mass and lump, neck (principal)

== ENCOUNTER → 2023-12-16 | Outpatient (CLI) | payer MEDICARE | LOC: M RAD 16:27 | PROVIDERS: ATTEND Physician Assistant | DX: R22.1 Localized swelling, mass and lump, neck (principal) ==

== ENCOUNTER → 2023-12-17 | Outpatient (CLI) | payer MEDICARE | LOC: M RAD 14:05 | PROVIDERS: ATTEND Physician Assistant | DX: R22.1 Localized swelling, mass and lump, neck (principal) ==

== ENCOUNTER → 2023-12-24 | Outpatient (CLI) | payer MEDICARE ==
[~2023-12-24] MED LIST changes: +LIDOCAINE 1% MDV 20ML VIAL As Ordered ONE
[2023-12-24 13:10] VITALS: TEMP 98.2
[2023-12-24 13:40] VITALS: BP 132/79; O2SAT 98
== END ==
LOC: M IRPRO 13:00
PROVIDERS: ATTEND Physician Assistant
DX: R22.1 Localized swelling, mass and lump, neck (principal)

== ENCOUNTER → 2024-01-23 | Outpatient (CLI) | payer MEDICARE ==
[~2024-01-23] MED LIST changes: +CODE15TA PO; +GUAI1SOL2 PO; -LIDOCAINE 1% MDV 20ML VIAL As Ordered ONE; +MAGICMW SSP; +OMEP40CA5 PO
== END ==
LOC: M ONCR 14:32
PROVIDERS: ATTEND General Practice
DX: C32.1 Malignant neoplasm of supraglottis (principal); Z79.899 Other long term (current) drug therapy; Z80.0 Family history of malignant neoplasm of digestive organs; Z87.891 Personal history of nicotine dependence
CPT/HCPCS: 31575; G0463

== ENCOUNTER → 2024-02-25 | Outpatient (CLI) | payer MEDICARE, MEDICAID | LOC: M PLARAD 12:16 | PROVIDERS: ATTEND Otolaryngology | DX: C31.9 Malignant neoplasm of accessory sinus, unspecified (principal) ==

== ENCOUNTER → 2024-05-12 | Outpatient (CLI) | payer MEDICARE, MEDICAID | LOC: M PLARAD 12:17 | PROVIDERS: ATTEND Otolaryngology | DX: C32.9 Malignant neoplasm of larynx, unspecified (principal); C77.0 Secondary and unspecified malignant neoplasm of lymph nodes of head, face and neck ==

== ENCOUNTER → 2024-05-25 | Outpatient (CLI) | payer MEDICARE, MEDICAID ==
[~2024-05-25] MED LIST changes: +OXYC5SOL11 PO
== END ==
LOC: M PLARAD 13:39
PROVIDERS: ATTEND Otolaryngology
DX: C32.9 Malignant neoplasm of larynx, unspecified (principal); C77.0 Secondary and unspecified malignant neoplasm of lymph nodes of head, face and neck; Z53.9 Procedure and treatment not carried out, unspecified reason

== ENCOUNTER → 2024-05-26 | Outpatient (CLI) | payer MEDICARE, MEDICAID | LOC: M ONCR 15:37 | PROVIDERS: ATTEND General Practice | DX: C32.1 Malignant neoplasm of supraglottis (principal); Z87.891 Personal history of nicotine dependence; Z79.899 Other long term (current) drug therapy; Z91.199 Patient's noncompliance with other medical treatment and regimen due to unspecified reason | CPT/HCPCS: 31575; G0463 ==

== ENCOUNTER → 2024-06-12 | Outpatient (RCR) | payer MEDICARE, MEDICAID ==
[~2024-06-12] MED LIST changes: +ENSU1LIQ36 PO; +[UNRECOGNIZED DRUG - CODE] PO
== END ==
LOC: M ONCR 05-27 14:03
PROVIDERS: ATTEND General Practice
DX: Z51.0 Encounter for antineoplastic radiation therapy (principal); C32.1 Malignant neoplasm of supraglottis

== ENCOUNTER 2024-07-02 16:30 | Outpatient (RCR) | payer MEDICARE, MEDICAID ==
[2024-06-29 17:26] LABS: BASO % 0.3 % (0.0-1.0); EOS # 0.1 10^3/uL (0.0-0.5); EOS % 2.1 % (0.0-3.0); HEMATOCRIT 44.4 % (42.0-52.0); HEMOGLOBIN 14.7 g/dl (13.5-17.5); LYMPH # 0.6 10^3/uL (1.5-5.0); LYMPH % 9.4 % (24.0-44.0); MEAN CORPUSCULAR HEMOGLOBIN 29.9 pg (27.0-33.0); MEAN CORPUSCULAR HGB CONC 33.1 g/dl (32.0-36.5); MEAN CORPUSCULAR VOLUME 90.2 fl (80.0-96.0); MONO # 0.9 10^3/uL (0.0-0.8); MONO % 13.9 % (2.0-8.0); NEUTROPHILS # 4.9 10^3/uL (1.5-8.5); NEUTROPHILS % 74.1 % (36.0-66.0); PLATELET COUNT, AUTOMATED 275 10^3/uL (150-450); RED BLOOD COUNT 4.92 10^6/uL (4.30-6.10); WHITE BLOOD COUNT 6.6 10^3/uL (4.0-10.0)
[2024-06-29 18:03] LABS: ALBUMIN 3.5 G/DL (3.2-5.2); ALKALINE PHOSPHATASE 60 U/L (40-129); ALT/SGPT 33 U/L (7.0-40); AST/SGOT 32 U/L (<34); BILIRUBIN,TOTAL 0.6 MG/DL (0.3-1.2); BLOOD UREA NITROGEN 17 MG/DL (9-23); CALCIUM LEVEL 9.2 MG/DL (8.3-10.6); CARBON DIOXIDE LEVEL 29 MMOL/L (20-31); CHLORIDE LEVEL 102 MMOL/L (98-107); CREATININE FOR GFR 0.76 MG/DL (0.70-1.30); GLOMERULAR FILTRATION RATE > 60.0 (>49); GLUCOSE, FASTING 95 MG/DL (74-106); POTASSIUM SERUM 4.6 MMOL/L (3.5-5.1); SODIUM LEVEL 141 MMOL/L (136-145); TOTAL PROTEIN 7.6 G/DL (5.7-8.2)
== END 2024-07-10 ==
LOC: M ONCR 16:30
PROVIDERS: ATTEND General Practice
DX: Z51.0 Encounter for antineoplastic radiation therapy (principal); C32.1 Malignant neoplasm of supraglottis

== ENCOUNTER → 2024-07-10 | Outpatient (CLI) | payer MEDICARE, MEDICAID | LOC: M ONCR 15:24 | PROVIDERS: ATTEND General Practice | DX: C32.1 Malignant neoplasm of supraglottis (principal); Z92.3 Personal history of irradiation ==

== ENCOUNTER → 2024-07-24 | Outpatient (CLI) | payer MEDICARE, MEDICAID | LOC: M ONCR 14:09 | PROVIDERS: ATTEND General Practice | DX: C32.1 Malignant neoplasm of supraglottis (principal) ==

== ENCOUNTER → 2024-08-07 | Outpatient (CLI) | payer MEDICARE, MEDICAID | LOC: M ONCR 14:20 | PROVIDERS: ATTEND General Practice | DX: R07.0 Pain in throat (principal); Z92.3 Personal history of irradiation ==

== ENCOUNTER → 2024-09-15 | Outpatient (CLI) | payer MEDICARE, MEDICAID ==
[2024-09-15 16:26] LABS: ALBUMIN 3.4 G/DL (3.2-5.2); ALKALINE PHOSPHATASE 56 U/L (40-129); ALT/SGPT 27 U/L (7.0-40); AST/SGOT 25 U/L (<34); BILIRUBIN,TOTAL 0.3 MG/DL (0.3-1.2); BLOOD UREA NITROGEN 18 MG/DL (9-23); CALCIUM LEVEL 8.9 MG/DL (8.3-10.6); CARBON DIOXIDE LEVEL 33 MMOL/L (20-31); CHLORIDE LEVEL 101 MMOL/L (98-107); CREATININE FOR GFR 0.76 MG/DL (0.70-1.30); GLOMERULAR FILTRATION RATE > 90.0 (>49); GLUCOSE, FASTING 94 MG/DL (74-106); POTASSIUM SERUM 4.9 MMOL/L (3.5-5.1); SODIUM LEVEL 140 MMOL/L (136-145); TOTAL PROTEIN 7.3 G/DL (5.7-8.2)
== END ==
LOC: M ONCM 15:05
PROVIDERS: ATTEND General Practice
DX: C32.1 Malignant neoplasm of supraglottis (principal)

== ENCOUNTER → 2025-01-04 | Outpatient (CLI) | payer MEDICARE, MEDICAID ==
[~2025-01-04] MED LIST changes: +DULO1CAP6 PO; +FLUC100T3 PO; +LEVO50TA5 PO
[2025-01-04 16:25] LABS: FREE T4 0.84 NG/DL (0.89-1.76)
== END ==
LOC: M ONCR 14:38
PROVIDERS: ATTEND General Practice
DX: Z08 Encounter for follow-up examination after completed treatment for malignant neoplasm (principal); Z85.21 Personal history of malignant neoplasm of larynx; Z87.891 Personal history of nicotine dependence; Z92.3 Personal history of irradiation; Z79.899 Other long term (current) drug therapy; R94.6 Abnormal results of thyroid function studies
CPT/HCPCS: 31575; 36415; 84439; 84443; G0463

== ENCOUNTER → 2025-04-05 | Outpatient (CLI) | payer MEDICARE, MEDICAID ==
[~2025-04-05] MED LIST changes: +LEVO100T5 PO
[2025-04-05 14:53] LABS: FREE T4 0.76 NG/DL (0.89-1.76)
== END ==
LOC: M ONCR 13:28
PROVIDERS: ATTEND General Practice
DX: C32.1 Malignant neoplasm of supraglottis (principal); Z79.899 Other long term (current) drug therapy; Z87.891 Personal history of nicotine dependence; Z92.3 Personal history of irradiation
CPT/HCPCS: 31575; 36415; 84439; 84443; G0463